=== PATIENT | female | born 1995 | race Caucasian/White ===

== ENCOUNTER 2018-07-21 18:57 | Emergency (ER) | payer OTHER ==
[2018-07-21] MEDS ORDERED: Ciprofloxacin 500 MG TAB ONE (19:03)
== END 2018-07-21 22:47 | disposition home or self-care (01) ==
LOC: ER/OP 18:57
DX: Z20.811 Contact with and (suspected) exposure to meningococcus (principal)
CPT/HCPCS: 99281

== ENCOUNTER 2019-01-14 14:41 | Outpatient (CLI) | payer BC | END 2019-01-14 14:42 | disposition home or self-care (01) | LOC: CTENTCT 14:41 | PROVIDERS: ATTEND Otolaryngology Plastic Surgery within the Head & Neck | DX: J32.8 Other chronic sinusitis (principal) | CPT/HCPCS: 70486 ==

== ENCOUNTER 2020-03-26 15:47 | Emergency (ER) | payer BC ==
--- NOTE | 2020-03-26 16:44 | RAD ---
Right hand 3 views HISTORY: Injury. Swelling. FINDINGS: Joint spaces are preserved. No acute fracture, dislocation, or aggressive osseous erosions are apparent. IMPRESSION : No abnormalities are demonstrated.
--- NOTE | 2020-03-26 16:55 | RAD ---
Exam: XR Forearm Rt 2 View STANDARD HISTORY: Injury after a fall. COMPARISON: None FINDINGS: No acute fracture, dislocation, or other acute osseous abnormality is identified. IMPRESSION: No acute osseous abnormality is identified.
== END 2020-03-26 16:33 | disposition home or self-care (01) ==
LOC: ERS 15:47
DX: S69.91XA Unspecified injury of right wrist, hand and finger(s), initial encounter (principal); W18.30XA Fall on same level, unspecified, initial encounter